=== PATIENT | female | born 2000 | race Caucasian/White ===

== ENCOUNTER → 2024-05-31 08:42 | Outpatient (REF) | payer OTHER, SELFPAY | LOC: PNTC 08:42 | PROVIDERS: ATTENDING PHYSICIAN Obstetrics & Gynecology; PRIMARYCARE PHYSICIAN Family Medicine | DX: Z34.82 Encounter for supervision of other normal pregnancy, second trimester (principal) | CPT/HCPCS: 76805 ==

== ENCOUNTER → 2024-08-02 07:50 | Outpatient (REF) | payer OTHER, SELFPAY | LOC: PNTC 07:50 | PROVIDERS: ATTENDING PHYSICIAN Obstetrics & Gynecology | DX: O98.513 Other viral diseases complicating pregnancy, third trimester (principal) | CPT/HCPCS: 76816 ==

== ENCOUNTER 2024-09-21 04:16 | Inpatient (IN) | payer OTHER, SELFPAY ==
[2024-09-21 06:57] LABS: % Basophils 0.4 % (0-2); % Eosinophils 0.3 % (0-6); % Immature Granulocytes 0.7 % (0-0.5); % Lymphocytes 12.8 % (20.5-51.1); % Monocytes 7.6 % (1.7-9.3); % Neutrophils 78.2 % (42.2-75.2); Absolute Immature Granulocytes 0.1 10^3/uL (0-0.05); Absolute Lymphocytes 1.3 10^3/uL (1.2-3.4); Absolute Monocytes 0.8 10^3/uL (0.1-0.6); Absolute Neutrophils 8.2 10^3/uL (1.4-6.5); Hematocrit 35.8 % (37.0-47.0); Hemoglobin 12.6 g/dL (12.0-16.0); Mean Corp Hgb Conc. 35.2 g/dL (33.0-37.0); Mean Corpuscular Hgb 32.3 pg (27.0-31.0); Mean Corpuscular Volume 91.8 fL (81.0-99.0); Mean Platelet Volume 11.5 fL (7.4-10.4); Nucleated Red Blood Cells % 0 %; Platelet Count 197 10^3/uL (130-400); Red Cell Dist. Width 12.2 % (11.5-14.5); White Blood Cell Count 10.4 10^3/uL (4.8-10.8)
[2024-09-21 07:16] LABS: Urine Albumin 2+ (Neg - Trace); Urine Bilirubin Negative (Negative); Urine Character Cloudy (Clear); Urine Color Yellow; Urine Glucose Negative (Negative); Urine Ketone Negative (Negative); Urine Leukocyte 3+ (Negative); Urine Nitrite Negative (Negative); Urine Occult Blood 1+ (Negative); Urine Urobilinogen Negative (Neg - 1+)
[2024-09-21 07:22] LABS: ALT (SGPT) 19 U/L (0-35); AST (SGOT) 24 U/L (14-36); Albumin 3.8 g/dl (3.5-5.0); Alkaline Phosphatase 162 U/L (38-126); Blood Urea Nitrogen 13 mg/dl (7-17); Calcium 9.2 mg/dl (8.4-10.2); Carbon Dioxide 21 mmol/L (22-30); Chloride 103 mmol/L (98-107); Glucose 83 mg/dl (70-99); Potassium 4.3 mmol/L (3.5-5.1); Sodium 136 mmol/L (135-145); Total Bilirubin 0.7 mg/dl (0.2-1.3); Total Protein 6.7 g/dl (6.3-8.2); eGFR > 60.00
[2024-09-21 07:54] LABS: Protein/creatinine Ratio 0.3; Urine Protein 33 mg/dl
[2024-09-21 07:58] VITALS: BP 131/90; BMI 28.1
[2024-09-21 09:19] LABS: Urine Amorphous Seen; Urine Squamous Cell >30 /LPF (Few)
[2024-09-21 09:21] LABS: Urine Red Blood Cell 0-2 /HPF (0-2); Urine White Cell 21-25 /HPF (0-5)
[2024-09-21 09:22] LABS: Urine Bacteria Few (Negative)
[2024-09-21] MEDS: SUBLIMAZE 100 MCG EPIDURAL (12:16)
[2024-09-21] MEDS: FENTANYL/BUPIVACAINE 100 EPIDURAL ×2 (12:16→19:20)
[2024-09-21] MEDS: LR 1000 IV ×2 (12:36→15:35)
[2024-09-21] MEDS: PENICILLIN 110 UNITS IV (12:36)
[2024-09-21 13:10] LABS: HIV Combo Negative (Negative)
[2024-09-21] MEDS: PENICILLIN 55 UNITS IV ×2 (16:24→20:02)
[2024-09-21] MEDS: PITOCIN 30 UNITS/NSS 500 ML IV (20:47)
[2024-09-21] MEDS: MOTRIN 600 MG PO (23:10)
[2024-09-22 05:37] LABS: Hematocrit 32.1 % (37.0-47.0); Hemoglobin 11.5 g/dL (12.0-16.0)
[2024-09-22] MEDS: SENOKOT-S 1 TABLET PO (07:42)
[2024-09-22] MEDS: MOTRIN 600 MG PO ×2 (07:42→16:45)
[2024-09-22] MEDS: PRENATAL PLUS 1 TABLET PO (07:42)
[2024-09-22 16:47] LABS: Syphilis/T. pallidum Ab Reflex Negative (Negative)
[2024-09-23] MEDS: PRENATAL PLUS PO (10:36)
== END 2024-09-23 11:37 | disposition home or self-care (01) | DRG 807 ==
LOC: LDRP 04:16
PROVIDERS: Obstetrics & Gynecology; ADMITTING PHYSICIAN Obstetrics & Gynecology
PROC: 10907ZC Drainage of Amniotic Fluid, Therapeutic from Products of Conception, Via Natural or Artificial Opening (ICD-10-PCS; 2024-09-21)
PROC: 10E0XZZ Delivery of Products of Conception, External Approach (ICD-10-PCS; 2024-09-21)
PROC: 0HQ9XZZ Repair Perineum Skin, External Approach (ICD-10-PCS; 2024-09-21)
PROC: 0UQMXZZ Repair Vulva, External Approach (ICD-10-PCS; 2024-09-21)
DX: O99.824 Streptococcus B carrier state complicating childbirth (principal); Z37.0 Single live birth; Z3A.39 39 weeks gestation of pregnancy; O70.0 First degree perineal laceration during delivery; O76 Abnormality in fetal heart rate and rhythm complicating labor and delivery; O69.2XX0 Labor and delivery complicated by other cord entanglement, with compression, not applicable or unspecified
CPT/HCPCS: 36415; 80053; 81003; 81015; 82570; 84156; 85014; 85018; 85025; 86780; 86850; 86900; 86901; 87389